=== PATIENT | female | born 1960 | race Caucasian/White ===

== ENCOUNTER → 2021-04-24 | Outpatient (CLI) | payer BC, OTHER ==
[~2021-04-24] MED LIST: ALEVE220 M1 PO; APAP500 PO; ARIMIDEX PO; ASPIRIN EC81 M1 OR; B12INJ OR; CENTRUM SILVER1 EAC1 PO; EFFEXOR XR75 MG OR; EFFEXOR75 MG PO; IBUPROFEN 200200 M1 PO; NOLVADEX10 MG OR; PEPCID40 MG PO; PERCOCET 5-3251 EACH PO; VICODIN 5-5001 EACH OR; VITAMIN B-12500 MCG PO; VITAMIN D1000 UNI1 PO
== END ==
LOC: RAD 12:04
PROVIDERS: ATTEND Nurse Practitioner
DX: R05.9 Cough, unspecified (principal)